=== PATIENT | female | born 1960 | race Caucasian/White ===

== ENCOUNTER → 2024-03-03 06:18 | Day surgery (SDC) | payer BC, SELFPAY | LOC: GI 06:18 | PROVIDERS: ATTENDING PHYSICIAN Specialist; FAMILY PHYSICIAN Family Medicine | DX: Z12.11 Encounter for screening for malignant neoplasm of colon (principal); D12.3 Benign neoplasm of transverse colon; Z86.010 Personal history of colon polyps; Z80.0 Family history of malignant neoplasm of digestive organs | CPT/HCPCS: 45385; 45380; 88305 ==

== ENCOUNTER → 2024-09-14 14:26 | Outpatient (REF) | payer BC, SELFPAY | LOC: WDC 14:26 | PROVIDERS: ATTENDING PHYSICIAN Specialist; FAMILY PHYSICIAN Family Medicine | DX: Z13.820 Encounter for screening for osteoporosis (principal); Z12.31 Encounter for screening mammogram for malignant neoplasm of breast | CPT/HCPCS: 77063; 77067; 77080 ==

== ENCOUNTER → 2025-09-12 08:48 | Outpatient (REF) | payer BC, SELFPAY | LOC: RAD 08:48 | PROVIDERS: ATTENDING PHYSICIAN Physician Assistant | DX: M76.31 Iliotibial band syndrome, right leg (principal); M76.32 Iliotibial band syndrome, left leg | CPT/HCPCS: 73522 ==

== ENCOUNTER → 2025-09-19 14:16 | Outpatient (REF) | payer BC, SELFPAY | LOC: WDC 14:16 | PROVIDERS: ATTENDING PHYSICIAN Nurse Practitioner Adult Health; FAMILY PHYSICIAN Family Medicine | DX: Z12.31 Encounter for screening mammogram for malignant neoplasm of breast (principal) | CPT/HCPCS: 77063; 77067 ==